=== PATIENT | female | born 1990 | race Hispanic/Latino ===

== ENCOUNTER 2019-01-26 20:42 | Emergency (ER) | payer OTHER ==
[~2019-01-26] VITALS: Ht 157.5 cm; Wt 51.3 kg
--- NOTE | 2019-01-26 22:17 | Diagnostic Imaging Report ---
EXAM: First Trimester Obstetric Pelvic Ultrasound INDICATION: Vaginal bleeding and cramping COMPARISON: None TECHNIQUE: Grayscale transverse and sagittal transabdominal and transvaginal images were obtained of the pelvis. Transvaginal imaging was medically necessary to better evaluate the endometrium, adnexa, and fetus. CLINICAL HISTORY: Passing blood clots 29 year old Last menstrual period: 12/06/2018 Clinical gestational age: 7 weeks 2 days FINDINGS: Uterus: Orientation: Normal Size: 7.6 x 4 x 4.1 cm, normal Mass: None Cervix: Normal Endometrial cavity: Gestational Sac/embryo: Not identified. Heterogeneous avascular material measures 0.9 cm thick in the lower endometrial cavity. Right ovary Size: 2.8 x 2 x 3.4 cm Mass/Cyst: None Left ovary Size: 2.6 x 1.9 x 2.4 cm Mass/Cyst: None Cul-de-sac: No free fluid IMPRESSION: of unknown location. Heterogeneous avascular material in the lower endometrial cavity may represent hemorrhage products. Followup pelvic ultrasound in 1-2 weeks. CLASSIFICATION Viable: can potentially result in a liveborn baby Visualized embryo with FHT Nonviable: Findings diagnostic of failure * Ectopic * CRL >= 7 mm and no FHT * MSD >= 25 mm and no embryo * No FHT >= 2 weeks after US showed GS w/o YS * No FHT >= 11 days after US showed GS w/ YS Intrauterine of uncertain viability: Intrauterine GS with no FHT and no definite findings of failure of unknown location: Positive urine or serum test and no IUP or ectopic on US Diagnostic Criteria for Nonviable Early in the First Trimester N Engl J Med 2013;369:1443-51. DOI: [id number] Signed by: Peng Patton DO on 01/26/2019 10:14 PM
[2019-01-26] MEDS ORDERED: FAMOTIDINE 20 MG/2 ML VIAL IV ONE ×2 (22:26→22:49)
[2019-01-26] MEDS ORDERED: IBUPROFEN 200 MG TAB ONE (23:15)
[2019-01-26] MEDS ORDERED: IBUPROFEN 600 MG TAB PO STA (23:24)
[2019-01-26] MEDS ORDERED: RHO (D) IMMUNE GLOBULIN 300 MCG SYRINGE INJ ONE (23:30)
== END 2019-01-27 01:25 | disposition home or self-care (01) ==
LOC: FSED 20:42
DX: O03.9 Complete or unspecified spontaneous abortion without complication (principal); O26.891 Other specified pregnancy related conditions, first trimester; Z67.41 Type O blood, Rh negative
CPT/HCPCS: 76801; 80048; 81003; 81025; 85025; 86900; 99284; J1566